=== PATIENT | male | born 2000 | race Caucasian/White ===

== ENCOUNTER 2024-10-12 20:02 | Emergency (ER) | payer OTHER, SELFPAY ==
--- OUTSIDE RECORDS SUMMARY | 2024-10-12 20:04 | XMS_ITS | Clinical Summary ---
Author Organization [facility] Address [facility] [place] [address] Care Team Providers Care Coal Yard Supervisor Name Role Phone Celso Perez MD Primary Care Provider [phone] Allergies Active Allergy Reactions Criticality Noted Date Comments Peanut (Diagnostic) Throat swelling 07/20/2024 Shrimp (Diagnostic) Throat swelling 07/20/2024 Encounters Date Type Department Care Team Description 07/20/2024 7:29 AM CDT - 07/20/2024 9:27 AM CDT Emergency [facility] [place] [address] Jhony Witt MD Pleuritic Chest Pain; Abdominal Pain Discharge Disposition: Home or Self Care (Routine Discharge) 07/20/2024 Travel from Last 3 Months Social History Tobacco Use Types Packs/Day Years Used Date Smoking Tobacco: Never Smokeless Tobacco: Never Tobacco Cessation:Counseling Given: Not Answered Sex and Gender Information Value Date Recorded Sex Assigned at Male 07/20/2024 7:29 AM CDT Legal Sex Male 7:20 AM CDT Gender Identity Male 07/20/2024 7:29 AM CDT Sexual Orientation Not on file Last Filed Vital Signs Vital Sign Reading Time Taken Comments Blood Pressure 131/87 07/20/2024 7:26 AM CDT Pulse 79 07/20/2024 7:26 AM CDT Temperature 36.6 C (97.8 F) 07/20/2024 7:26 AM CDT Respiratory Rate 17 07/20/2024 7:26 AM CDT Oxygen Saturation 100% 07/20/2024 7:26 AM CDT Inhaled Oxygen Concentration - - Weight 88.9 kg (196 lb) 07/20/2024 7:26 AM CDT Height 177.8 cm (5' 10) 07/20/2024 7:26 AM CDT Body Mass Index 28.12 07/20/2024 7:26 AM CDT Plan of Treatment Health Maintenance Due Date Last Done Comments Annual Physical 01/18/2004 HPV Vaccines (1 - Male 3-dos e series) 01/18/2016 Meningococcal B Vaccine (1 o f 2 - Standard) 2017 Hepatitis C 2019 DTaP, Tdap and Td Vaccines ( 1 - Tdap) 01/18/2020 Hepatitis B Vaccines (1 of 3 - 19+ 3-dose series) 01/18/2020 COVID-19 Vaccine (2 - 2023-2 5 season) 2023 09/18/2020 Meningococcal Vaccine Aged Out No albertina shabnam eligible based on patient's age to complete this topic Pneumococcal Vaccine: Pediat rics (0 to 5 Years) and At-Risk Patients (6 to 49 Years) Aged Out No longer eligi ble based on patient's age to complete this topic RSV Immunizations Under 20 Months Aged Out No longer eligible based on patient's age to complete this topic Procedures Procedure Name Priority Date/Time Associated Diagnosis Comments CT ABD+PEL W CON STAT 07/20/2024 8:22 AM CDT XR CHEST PORTABLE STAT 07/20/2024 8:2 1 AM CDT TROPONIN, QUANT STAT 07/20/2024 8:04 AM CDT LIPASE STAT 07/20/2024 8:04 AM CDT COMPREHENSIVE METABOLIC PANEL STAT 07/20/2024 8:04 AM CDT CBC W/DIFF AUTOMATED STAT 07/20/2024 8:04 AM CDT ECG 12-LEAD STAT 07/20/2024 7:55 AM CDT from Last 3 Months Results * CT ABD+PEL W CON (07/20/2024 8:22 AM CDT) Anatomical Region Laterality Modality Abdomen Computed Tomogra phy 07/20/2024 8:58 AM CDT Impressions 07/20/2024 9:01 AM CDT Impression: No definite acute CT findings within the abdomen or pelvis. Ordered By: JHONY WITT Interpreted By: Jhony Montana MD, 07/20/2024 8:58 AM Narrative 07/20/2024 9:01 AM CDT [address] [address] [address] abdomen and pelvis with contrast: 07/20/2024 8:58 AM INDICATION: 24 year old with history of headache, back pain, abdominal pain, and pleuritic chest pain TECHNIQUE: After the administration of 100 cc Isovue 370, intravenously, CT is performed utilizing contiguous 3 mm axial collimation through the abdomen, pelvis. Additionally, multiplanar reformats were obtained from axial source data. A dose lowering technique was used for this procedure, which may include, but is not limited to, dose reduction techniques, automated exposure control, the use of a iterative reconstruction, and ALARA (as low as reasonably achievable)/image gently techniques. COMPARISON: None available. FINDINGS: Lung bases are well aerated. Heart size is normal. Abdomen: Liver is normal in size and contour. Gallbladder is negative. There is no bile duct dilation. The pancreas is negative. The spleen is normal in size. There is no adrenal mass. The perinephric abnormality. No hydronephrosis. No nephrolithiasis. The caliber the abdominal aorta is normal. Pelvis: The appendix is normal. There is no bowel dilation or wall thickening. No free fluid within the abdomen or pelvis. No free intraperitoneal air. Urinary bladder is grossly normal. No acute fracture nor destructive process of the visualized osseous structures. Procedure Note Jhony Montana MD - 07/20/[address] [address] [address] abdomen and pelvis with contrast: 07/20/2024 8:58 AM INDICATION: 24 year old with history of headache, back pain, abdominalpain, and pleuritic chest pain TECHNIQUE: After the administration of 100 cc Isovue 370, intravenously,CT is performed utilizing contiguous 3 mm axial collimation through theabdomen, pelvis. Additionally, multiplanar reformats were obtained fromaxial source data. A dose lowering technique was used for this procedure,which may include, but is not limited to, dose reduction techniques,automated exposure control, the use of a iterative reconstruction, andALARA (as low as reasonably achievable)/image gently techniques. COMPARISON: None available. FINDINGS: Lung bases are well aerated. Heart size is normal. Abdomen: Liver is normal in size and contour. Gallbladder is negative. There is nobile duct dilation. The pancreas is negative. The spleen is normal insize. There is no adrenal mass. The perinephric abnormality. Nohydronephrosis. No nephrolithiasis. The caliber the abdominal aorta isnormal. Pelvis: The appendix is normal. There is no bowel dilation or wall thickening. Nofree fluid within the abdomen or pelvis. No free intraperitoneal air.Urinary bladder is grossly normal. No acute fracture nor destructiveprocess of the visualized osseous structures. Impression: No definite acute CT findings within the abdomen or pelvis. Ordered By: JHONY WITT Interpreted By: Jhony Montana MD, 07/20/2024 8:58 AM Jhony Witt MD CT Final Result * XR CHEST PORTABLE (07/20/2024 8:21 AM CDT) Anatomical Region Laterality Modality Chest Radiographic Iva ging 07/20/2024 8:58 AM CDT Impressions 07/20/2024 8:59 AM CDT IMPRESSION: No radiographic evidence of an acute cardiopulmonary abnormality. Ordered By: JHONY WITT Interpreted By: Jhony Montana MD, 07/20/2024 8:58 AM Narrative 07/20/2024 8:59 AM CDT [facility] [address], [place] [address] Examination: XR CHEST PORTABLE, 07/20/2024 7:59 AM. Technique: Upright AP portable radiograph the chest Clinical history: Dyspnea Comparison: None available Findings: Heart size is normal. Pulmonary vascular pattern appears unremarkable. No focal pulmonary consolidation. No pleural effusion. No pneumothorax. Procedure Note Jhony Montana MD - 07/20/2024 [facility] [address], [place] [address] Examination: XR CHEST PORTABLE, 07/20/2024 7:59 AM. Technique: Upright AP portable radiograph the chest Clinical history: Dyspnea Comparison: None available Findings: Heart size is normal. Pulmonary vascular pattern appears unremarkable. Nofocal pulmonary consolidation. No pleural effusion. No pneumothorax. IMPRESSION: No radiographic evidence of an acute cardiopulmonary abnormality. Ordered By: JHONY WITT Interpreted By: Jhony Montana MD, 07/20/2024 8:58 AM Jhony Witt MD GENERAL IMAGING Final Result * (ABNORMAL) COMPREHENSIVE METABOLIC PANEL (07/20/2024 8:04 AM CDT) GLUCOSE 93 70 - 99 MG/DL 07/20/2024 8:44 AM CDT [facility] BUN 22(H) 7 - 18 MG/DL 07/20/2024 8:44 AM CDT [facility] CREATININE S/P/B 0.95 0.7 - 1.3 MG/DL 07/20/2024 8:44 AM CDT [facility] SODIUM S/P/B 137 136 - 145 MMOL/L 07/20/2024 8:44 AM CDT [facility] POTASSIUM S/P/B 4.0 3.5 - 5.1 MMOL/L 07/20/2024 8:44 AM CDT [facility] CHLORIDE S/P/B 108 97 - 115 MMOL/L 07/20/2024 8:44 AM T [facility] CO2 24.6 21 - 32 MMOL/L 07/20/2024 8:44 AM CDT [facility] CALCIUM S/P/B 9.6 8.5 - 10.1 MG/DL 07/20/2024 8:44 AM CDT [facility] BILIRUBIN TOTAL S/P/B 0.9 0.2 - 1.2 MG/DL 07/20/2024 8:44 AM T [facility] Comment: THIS ASSAY IS NOT RECOMMENDED FOR PATIENTS UNDERGOING TREATMENT WITH ELTROMBOPAG DUE TO THE POTENTIAL FOR FALSELY ELEVATED RESULTS. TOTAL PROTEIN S/P/B 8.5(H) 6.4 - 8.2 G/DL 07/20/2024 8:44 AM T [facility] ALBUMIN S/P/B 4.5 3.4 - 5.0 G/DL 07/20/2024 8:44 AM CDT [facility] AST 16 15 - 37 U/L 07/20/2024 8:44 AM T [facility] ALT 29 16 - 60 U/L 07/20/2024 8:44 AM T [facility] ALKALINE PHOSPHATASE S/P/B 61 50 - 136 U/L 07/20/2024 8:44 AM T [facility] ANION GAP 4.4 2 - 10 MMOL/L 07/20/2024 8:44 AM T [facility] BUN CREATININE RATIO 23.2 6 - 26 07/20/2024 8:44 AM T [facility] A/G RATIO 1.1 1.0 - 2.0 RATIO 07/20/2024 8:44 AM CDT [facility] GFR ESTIMATE >90 >90 ML/MIN/1.7 3 M2 07/20/2024 8:44 AM CDT [facility] Comment: NOTE: eGFR is not calculated for patients <18 years of age or gender unknown. This is an estimated GFR calculation using the new CKD EPI creatinine equation without race and so does not require a correction factor for race. This estimated GFR should not be used for calculating drug doses. 07/20/2024 8:04 AM CDT us Jhony Witt MD LABORATORY Final Result [facility] [address] [place] [address], [place] [phone] * (ABNORMAL) CBC W/DIFF AUTOMATED (07/20/2024 8:04 AM CDT) WBC 7.07 4.5 - 11.0 x10'3/uL 07/20/2024 8:25 AM CDT [facility] RBC 5.91 4.70 - 6.10 x10'6/uL 07/20/2024 8:25 AM CDT [facility] HGB 16.1 14.0 - 18.0 G/DL 07/20/2024 8:25 AM CDT [facility] HCT 47.4 43.0 - 54.0 % 07/20/2024 8:25 AM CDT [facility] MCV 80.2 80.0 - 94.0 FL 07/20/2024 8:25 AM CDT [facility] MCH 27.2 27.0 - 31.0 PG 07/20/2024 8:25 AM CDT [facility] MCHC 34.0 32.0 - 36.0 G/DL 07/20/2024 8:25 AM CDT [facility] RDW 12.8 11.5 - 14.5 % 07/20/2024 8:25 AM CDT [facility] PLT 341 130 - 400 x10'3/uL 07/20/2024 8:25 AM CDT [facility] MPV 8.5(L) 9.3 - 12.2 FL 07/20/2024 8:25 AM CDT [facility] DIFFERENTIAL TYPE AUTOMATED DIFFERENTIAL 07/20/2024 8:25 AM CDT [facility] NEUTROPHILS % 58.4 % 07/20/2024 8:25 AM CDT [facility] LYMPHOCYTES % 31.0 % 07/20/2024 8:25 AM CDT [facility] MONOCYTES % 6.9 % 07/20/2024 8:25 AM CDT [facility] EOSINOPHILS 3.0 % 07/20/2024 8:25 AM CDT [facility] BASOPHILS 0.4 % 07/20/2024 8:25 AM CDT [facility] IMMATURE GRANS % 0.3 % 07/21/19 8:25 AM CDT [facility] ABS. NEUTROPHILS 4.13 1.80 - 7.70 x10'3/uL 07/20/2024 8:25 AM CDT [facility] ABS. LYMPHOCYTES 2.19 1.00 - 4.80 x10'3/uL 07/20/2024 8:25 AM CDT [facility] ABS. MONOCYTES 0.49 0.30 - 0.82 x10'3/uL 07/20/2024 8:25 AM CDT [facility] ABS. EOSINOPHILS 0.21 0.04 - 0.54 x10'3/uL 07/20/2024 8:25 AM CDT [facility] ABS. BASOPHILS 0.03 0.01 - 0.08 x10'3/uL 07/20/2024 8:25 AM CDT [facility] ABS. IMMATURE GRANULOCYTES 0.02 0.00 - 0.49 x10'3/uL 07/20/2024 8:25 AM CDT [facility] 07/20/2024 8:04 AM CDT us Jhony Witt MD LABORATORY Final Result Performing Organization Address City/[facility]/ZIP Co de Phone Number [facility] [address] [place] [address], [place] [phone] * TROPONIN, QUANT (07/20/2024 8:04 AM CDT) TROPONIN I HIGH SENSITIVITY 4 <79 ng/L 07/20/2024 8:44 AM CDT [facility] Comment: HIGH DOSES OF BIOTIN, TROPONIN-SPECIFIC AUTOANTIBODIES, AND ANTIBODY THERAPY CONTAINING HAMA MAY INTERFERE WITH THIS TEST RESULT. CORRELATION TO CLINICAL HISTORY AND PRESENTATION RECOMMENDED. 07/20/2024 8:04 AM CDT us Jhony Witt MD LABORATORY Final Result Performing Organization Address City/[facility]/ZIP Co de Phone Number [facility] [address] [place] [address], [place] [phone] * LIPASE (07/20/2024 8:04 AM CDT) LIPASE 20 13 - 75 UNITS/L 07/20/2024 8:44 AM CDT [facility] 07/20/2024 8:04 AM CDT us Jhony Witt MD LABORATORY Final Result [facility] [address] [place] [address], * ECG 12 lead (07/20/2024 7:55 AM CDT) 07/20/2024 7:55 AM CDT Narrative 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 Other ischemic changes, not STEMI Procedure Note Art Souza MD - 07/21/[address] Test Date: 2024-07-20 Pat Name: HOWIE VALENTINEMILY Department: 41 Room: [facility] Gender: Male Base Cloth Inspector: : [id number] Requested By: JHONY WITT Order Number: [id number] Reading : Art Souza Measurements Intervals [place] Rate: 70 P: 21 CT: 167 QRS: 28 QRSD: 99 T: 21 QT: 369 QTc: 401 Interpretive Statements SINUS RHYTHM No previous ECG available for comparison Preliminary EKG Interpretation by Jhony Witt M.D. Other ischemic changes, not STEMI us Jhony Witt MD ECG ORDERABLES Final Result [facility] from Last [address] [place] [address] Care Teams Coal Yard Supervisor Relationship Specialty Start Date End Date Celso Perez MD [address] [place] [id number] PCP - General FAMILY PRACTICE 07/20/24
--- OUTSIDE RECORDS SUMMARY | 2024-10-12 20:04 | XMS_ITS | Clinical Summary ---
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 Gender Identity Not on file Sexual Orientation Not on file Plan of Treatment Health Maintenance Due Date Last Done Comments Hepatitis C Virus (HCV) Screening 2000 TdaP Immunization 2000 Human Papillomavirus (HPV) Immunization (1 - Male 3-dose series) 01/18/2016 Meningococcal B Immunization (1 of 2 - Standard) 2017 Hepatitis B Immunization (1 of 3 - 19+ 3-dose series) 01/18/2020 SARS-COV-2 Immunization (2 - season) 2023 09/18/2020 Influenza Immunization (#1) 2024 Respiratory Syncytial Virus (RSV) Immunization (Adult) (1 - 1-dose 75+ series) 01/18/2076 Meningococcal Immunization (ACWY) Aged Out No longer eligible based on patient's age to complete this topic Pneumococcal Immunization Combined Aged Out No longer eligible based on patient's age to complete this topic Rotavirus Immunization Aged Out No lo nger eligible based on patient's age to complete this topic Insurance GENERIC Care Teams Rock Dust Sprayer Relationship Specialty Start Date End Date Provider, None [place] PCP - General 02/02/24
[2024-10-12 20:51] VITALS: BP 144/103; PULSE 78; RESP 18; TEMP 36.6; O2SAT 100
[2024-10-12 22:29] VITALS: BP 143/76; PULSE 88; RESP 18; O2SAT 99
--- OUTSIDE RECORDS SUMMARY | 2024-10-12 22:59 | XMS_ITS | Clinical Summary ---
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
--- OUTSIDE RECORDS SUMMARY | 2024-10-12 22:59 | XMS_ITS | Clinical Summary ---
Author Organization [facility] Address [facility] [place] [address] Care Team Providers Care Shoe Designer Name Role Phone Celso Perez MD Primary Care Provider [phone]- [phone] Allergies Active Allergy Reactions Criticality Noted Date Comments Peanut (Diagnostic) Throat swelling 07/20/2024 Shrimp (Diagnostic) Throat swelling 07/20/2024 Encounters Date Type Department Care Team Description 07/20/2024 7:29 AM CDT - 07/20/2024 9:27 AM CDT Emergency [facility] [place] [address] Jhony Witt MD Pleuritic Chest Pain; Abdominal [...] 8:58 AM Narrative 07/20/2024 9:01 AM CDT [address] [address] [address] abdomen and pelvis with contrast: 07/20/2024 [...] Procedure Note Jhony Montana MD - 07/20/[address] [address] [address] abdomen and pelvis with contrast: 07/20/2024 [...] 8:58 AM Narrative 07/20/2024 8:59 AM CDT [facility] [address] [place], [place] [address] Examination: XR CHEST PORTABLE, 07/20/2024 7:59 AM. Technique: Upright AP portable radiograph the chest Clinical history: Dyspnea Comparison: None available Findings: Heart size is normal. Pulmonary vascular pattern appears unremarkable. No focal pulmonary consolidation. No pleural effusion. No pneumothorax. Procedure Note Jhony Montana MD - 07/20/2024 [facility] [address] [place], [place] [address] Examination: XR CHEST PORTABLE, 07/20/2024 7:59 AM. [...] - 99 MG/DL 07/20/2024 8:44 AM CDT [facility] BUN 22(H) 7 - 18 MG/DL 07/20/2024 8:44 AM CDT [facility] CREATININE S/P/B 0.95 0.7 - 1.3 MG/DL 07/20/2024 8:44 AM CDT [facility] SODIUM S/P/B 137 136 - 145 MMOL/L 07/20/2024 8:44 AM CDT [facility] POTASSIUM S/P/B 4.0 3.5 - 5.1 MMOL/L 07/20/2024 8:44 AM CDT [facility] CHLORIDE S/P/B 108 97 - 115 MMOL/L 07/20/2024 8:44 AM T [facility] CO2 24.6 21 - 32 MMOL/L 07/20/2024 8:44 AM CDT [facility] CALCIUM S/P/B 9.6 8.5 - 10.1 MG/DL 07/20/2024 8:44 AM CDT [facility] BILIRUBIN TOTAL S/P/B 0.9 0.2 - 1.2 MG/DL 07/20/2024 8:44 AM T [facility] Comment: THIS ASSAY IS NOT RECOMMENDED FOR PATIENTS UNDERGOING TREATMENT WITH ELTROMBOPAG DUE TO THE POTENTIAL FOR FALSELY ELEVATED RESULTS. TOTAL PROTEIN S/P/B 8.5(H) 6.4 - 8.2 G/DL 07/20/2024 8:44 AM T [facility] ALBUMIN S/P/B 4.5 3.4 - 5.0 G/DL 07/20/2024 8:44 AM CDT [facility] AST 16 15 - 37 U/L 07/20/2024 8:44 AM T [facility] ALT 29 16 - 60 U/L 07/20/2024 8:44 AM T [facility] ALKALINE PHOSPHATASE S/P/B 61 50 - 136 U/L 07/20/2024 8:44 AM T [facility] ANION GAP 4.4 2 - 10 MMOL/L 07/20/2024 8:44 AM T [facility] BUN CREATININE RATIO 23.2 6 - 26 07/20/2024 8:44 AM T [facility] A/G RATIO 1.1 1.0 - 2.0 RATIO 07/20/2024 8:44 AM CDT [facility] GFR ESTIMATE >90 >90 ML/MIN/1.7 3 M2 07/20/2024 8:44 AM CDT [facility] Comment: NOTE: eGFR is [...] us Jhony Witt MD LABORATORY Final Result [facility] [address] [place] [address], [place] [phone] * (ABNORMAL) CBC W/DIFF AUTOMATED (07/20/2024 8:04 AM CDT) WBC 7.07 4.5 - 11.0 x10'3/uL 07/20/2024 8:25 AM CDT [facility] RBC 5.91 4.70 - 6.10 x10'6/uL 07/20/2024 8:25 AM CDT [facility] HGB 16.1 14.0 - 18.0 G/DL 07/20/2024 8:25 AM CDT [facility] HCT 47.4 43.0 - 54.0 % 07/20/2024 8:25 AM CDT [facility] MCV 80.2 80.0 - 94.0 FL 07/20/2024 8:25 AM CDT [facility] MCH 27.2 27.0 - 31.0 PG 07/20/2024 8:25 AM CDT [facility] MCHC 34.0 32.0 - 36.0 G/DL 07/20/2024 8:25 AM CDT [facility] RDW 12.8 11.5 - 14.5 % 07/20/2024 8:25 AM CDT [facility] PLT 341 130 - 400 x10'3/uL 07/20/2024 8:25 AM CDT [facility] MPV 8.5(L) 9.3 - 12.2 FL 07/20/2024 8:25 AM CDT [facility] DIFFERENTIAL TYPE AUTOMATED DIFFERENTIAL 07/20/2024 8:25 AM CDT [facility] NEUTROPHILS % 58.4 % 07/20/2024 8:25 AM CDT [facility] LYMPHOCYTES % 31.0 % 07/20/2024 8:25 AM CDT [facility] MONOCYTES % 6.9 % 07/20/2024 8:25 AM CDT [facility] EOSINOPHILS 3.0 % 07/20/2024 8:25 AM CDT [facility] BASOPHILS 0.4 % 07/20/2024 8:25 AM CDT [facility] IMMATURE GRANS % 0.3 % 07/21/19 8:25 AM CDT [facility] ABS. NEUTROPHILS 4.13 1.80 - 7.70 x10'3/uL 07/20/2024 8:25 AM CDT [facility] ABS. LYMPHOCYTES 2.19 1.00 - 4.80 x10'3/uL 07/20/2024 8:25 AM CDT [facility] ABS. MONOCYTES 0.49 0.30 - 0.82 x10'3/uL 07/20/2024 8:25 AM CDT [facility] ABS. EOSINOPHILS 0.21 0.04 - 0.54 x10'3/uL 07/20/2024 8:25 AM CDT [facility] ABS. BASOPHILS 0.03 0.01 - 0.08 x10'3/uL 07/20/2024 8:25 AM CDT [facility] ABS. IMMATURE GRANULOCYTES 0.02 0.00 - 0.49 x10'3/uL 07/20/2024 8:25 AM CDT [facility] 07/20/2024 8:04 AM CDT us Jhony Witt MD LABORATORY Final Result Performing Organization Address City/[facility]/ZIP Co de Phone Number [facility] [address] [place] [id number], [place] [phone] * TROPONIN, QUANT (07/20/2024 8:04 AM CDT) TROPONIN I HIGH SENSITIVITY 4 <79 ng/L 07/20/2024 8:44 AM CDT [facility] Comment: HIGH DOSES OF BIOTIN, TROPONIN-SPECIFIC AUTOANTIBODIES, AND ANTIBODY THERAPY CONTAINING HAMA MAY INTERFERE WITH THIS TEST RESULT. CORRELATION TO CLINICAL HISTORY AND PRESENTATION RECOMMENDED. 07/20/2024 8:04 AM CDT us Jhony Witt MD LABORATORY Final Result Performing Organization Address City/[facility]/ZIP Co de Phone Number [facility] [address] [place] [address], [place] [phone] * LIPASE (07/20/2024 8:04 AM CDT) LIPASE 20 13 - 75 UNITS/L 07/20/2024 8:44 AM CDT [facility] 07/20/2024 8:04 AM CDT us Jhony Witt MD LABORATORY Final Result [facility] [address] [place] [address], * ECG 12 lead (07/20/2024 7:55 AM CDT) 07/20/2024 7:55 AM CDT Narrative [facility] - 07/21/2024 7:39 AM CDT [facility] Test Date: 2024-07-20 Pat [facility] Department: 41 Room: [facility] Gender: Male 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 Other ischemic changes, not STEMI Procedure Note Art Souza MD - 07/21/[address] Test Date: 2024-07-20 Pat Name: HOWIE VALENTINEMILY Department: 41 Room: [facility]1 Gender: Male Felt Hooker: : 2000 Requested By: JHONY WITT Order Number: [id number] Reading : Art Souza Measurements Intervals [place] Rate: 70 P: 21 VA: 167 QRS: 28 QRSD: 99 T: 21 QT: 369 QTc: 401 Interpretive Statements SINUS RHYTHM No previous ECG available for comparison Preliminary EKG Interpretation by Jhony Witt M.D. Other ischemic changes, not STEMI us Jhony Witt MD ECG ORDERABLES Final Result [facility] from Last 3 Months Insurance [employer] Care Teams Shoe Designer Relationship Specialty Start Date End Date Celso Perez MD [address] [place] [id number] PCP - General FAMILY PRACTICE 07/20/24
== END 2024-10-13 00:16 | disposition left against medical advice (07) ==
LOC: ANHED 22:57
DX: R10.31 Right lower quadrant pain (principal)
CPT/HCPCS: 99199